=== PATIENT | female | born 1985 | race African-American/Black ===

== ENCOUNTER 2022-01-29 06:52 | Emergency (ER) | payer OTHER ==
[2022-01-29] MEDS ORDERED: Bacitracin 1 PK ONE (07:48)
[2022-01-29] MEDS ORDERED: Boostrix 0.5 ML (Tdap) VIAL ONE (07:49)
[2022-01-29] MEDS ORDERED: Amoxicillin/Potassium Clav 875 MG TAB ONE (07:49)
[2022-01-29] MEDS ORDERED: Lidocaine 1% w/Epinephrine 1:100K 20 ML VIAL ONE (07:49)
[2022-01-29] MEDS ORDERED: Rabies Vaccine Human 2.5 UNITS VIAL ONE (07:49)
[2022-01-29] MEDS ORDERED: Ketorolac Tromethamine 30 MG/ML VIAL ONE (08:22)
[2022-01-29] MEDS ORDERED: Acetaminophen 500 MG TAB ONE (09:04)
[2022-01-29] MEDS ORDERED: Ampicillin/Sulbactam 3 GM in Sodium Chloride 0.9% 100 ML IVPB SCH (09:45)
== END 2022-01-29 10:16 | disposition left against medical advice (07) ==
LOC: CSHERS 06:52
DX: S91.351A Open bite, right foot, initial encounter (principal); W54.0XXA Bitten by dog, initial encounter
CPT/HCPCS: 90375; 90471; 90472; 90675; 90715; 96372; 96374; J0295; J1885; J3490

== ENCOUNTER 2022-11-08 18:06 | Emergency (ER) | payer OTHER ==
[2022-11-08] MEDS ORDERED: HYDROcodone/Acetaminophen 5/325 mg Tablet ONE (19:18)
== END 2022-11-08 19:25 | disposition home or self-care (01) ==
LOC: CSHERS 18:06
DX: S93.601A Unspecified sprain of right foot, initial encounter (principal); W22.8XXA Striking against or struck by other objects, initial encounter

== ENCOUNTER 2023-02-22 00:59 | Emergency (ER) | payer OTHER, SELFPAY ==
[2023-02-22] MEDS ORDERED: Ibuprofen 200 MG TAB ONE (01:54)
== END 2023-02-22 01:53 | disposition home or self-care (01) ==
LOC: CSHERS 00:59
DX: S90.935A Unspecified superficial injury of left lesser toe(s), initial encounter (principal); F17.210 Nicotine dependence, cigarettes, uncomplicated; W22.8XXA Striking against or struck by other objects, initial encounter

== ENCOUNTER 2023-02-26 00:33 | Emergency (ER) | payer SELFPAY ==
[2023-02-26] MEDS ORDERED: Ondansetron PF 4 MG/2 ML Vial ONE ×2 (00:54→02:12)
[2023-02-26] MEDS ORDERED: Ketorolac Tromethamine 30 MG/ML VIAL ONE (00:55)
[2023-02-26 01:05] LABS: #Eosinphils 0.1 10x3/uL (0.0-0.5); #Monocytes 0.4 10x3/uL (0.0-1.1); %Basophils 0.9 % (0.0-2.0); %Lymphocytes 54.6 % (18.0-47.0); %Monocytes 12.6 % (0.0-10.0); %Neutrophils 29.6 % (40.0-75.0); Hematocrit 36.4 % (34.9-44.5); Mean Corpuscular Hemoglobin 29.3 pg (27.0-33.0); Mean Platelet Volume 8.6 fl (7.4-10.4); Platelet Count 332 10x3/uL (150-450); RBC Distribution Width 14.6 % (11.5-14.5); Red Blood Cell (RBC) Count 4.09 10x6/uL (3.90-5.03); White Blood Cell (WBC) Count 3.5 10x3/uL (3.5-10.5)
[2023-02-26 01:17] LABS: ALT (SGPT) 25 U/L (8-55); AST (SGOT) 41 U/L (5-34); Albumin 4.1 g/dL (3.5-5.0); Alkaline Phosphatase 144 U/L (40-110); Anion Gap 18 mmol/L (10-20); BUN (Urea Nitrogen) 14 mg/dL (7.0-18.7); Bilirubin, Total Less than 0.2 mg/dL (0.2-1.2); CK (CPK) 549 U/L (29-168); Calc. Creatinine Clearance 0 mL/min (70-130); Calcium 8.5 mg/dL (7.8-10.44); Carbon Dioxide 18 mmol/L (22-29); Chloride 109 mmol/L (98-107); Estimated GFR 81; Globulin 3.1 g/dL (2.4-3.5); Glucose 129 mg/dL (70-105); Magnesium 1.7 mg/dL (1.6-2.6); Potassium 3.6 mmol/L (3.5-5.1); Protein, Total 7.2 g/dL (6.0-8.3); Sodium 141 mmol/L (136-145)
== END 2023-02-26 02:12 | disposition home or self-care (01) ==
LOC: CSHERS 00:33
DX: E86.0 Dehydration (principal); R11.0 Nausea; R51.9 Headache, unspecified; F17.210 Nicotine dependence, cigarettes, uncomplicated
CPT/HCPCS: 80053; 82550; 83735; 85025; 96374; 96375; 96376; J1885; J2405

== ENCOUNTER 2023-03-09 19:15 | Emergency (ER) | payer OTHER, SELFPAY | END 2023-03-09 21:10 | disposition home or self-care (01) | LOC: CSHERS 19:15 | DX: S62.315A Displaced fracture of base of fourth metacarpal bone, left hand, initial encounter for closed fracture (principal); F17.210 Nicotine dependence, cigarettes, uncomplicated; Y04.0XXA Assault by unarmed brawl or fight, initial encounter | CPT/HCPCS: 29125 ==

== ENCOUNTER 2023-03-22 19:02 | Emergency (ER) | payer OTHER ==
[2023-03-22] MEDS ORDERED: Lidocaine/Transparent Dressing 1 EACH KIT ONE (19:48)
== END 2023-03-22 20:30 | disposition home or self-care (01) ==
LOC: CSHERS 19:02
DX: K04.7 Periapical abscess without sinus (principal); F17.210 Nicotine dependence, cigarettes, uncomplicated
CPT/HCPCS: 99283

== ENCOUNTER 2023-05-23 13:55 | Emergency (ER) | payer OTHER ==
[~2023-05-23 13:55] MED LIST: Iopamidol 300 61% 100 ML VIAL FS ONE
[2023-05-23 14:25] LABS: Bilirubin Neg (Negative); Blood, Urine 10 (Negative); Clarity Clear (Clear); Glucose, Urine (Dipstick) Normal (Negative); Ketone, Urine Negative (Negative); Leukocyte Negative (Negative); Nitrite Negative (Negative); Protein, Urine (Dipstick) Negative (Neg-Trace)
[2023-05-23 14:42] LABS: Bacteria/HPF None Seen HPF (None Seen); CAUTI Indications for Culture Pelvic or flank pain; RBC/HPF 0-3 HPF (0-3); Squamous Epithelial 0-3 HPF (0-3); Urine Culture Reflex No No; WBC/HPF None Seen HPF (0-3)
[2023-05-23 15:04] LABS: Pregnancy Test - Urine (BHCG) Negative (Negative); Pregu Control Background? CLEAR/WHITE (CLR/WHITE); Pregu Control Bar Appear? YES (CONTROL BAR)
[2023-05-23 15:37] LABS: #Eosinphils 0.1 10x3/uL (0.0-0.5); #Monocytes 0.4 10x3/uL (0.0-1.1); #Neutrophils 2.2 10x3/uL (1.5-8.4); %Basophils 0.5 % (0.0-2.0); %Eosinophils 2.3 % (0.0-6.0); %Lymphocytes 28.6 % (18.0-47.0); %Monocytes 9.9 % (0.0-10.0); %Neutrophils 58.4 % (40.0-75.0); Hematocrit 38.3 % (34.9-44.5); Hemoglobin 12.4 g/dL (12.0-15.5); Mean Corpuscular HGB CONC 32.4 g/dL (32.0-36.0); Mean Corpuscular Hemoglobin 28.8 pg (27.0-33.0); Mean Corpuscular Volume 88.9 fl (81.6-98.3); Mean Platelet Volume 8.9 fl (7.4-10.4); Platelet Count 343 10x3/uL (150-450); RBC Distribution Width 13.4 % (11.5-14.5); Red Blood Cell (RBC) Count 4.31 10x6/uL (3.90-5.03); White Blood Cell (WBC) Count 3.8 10x3/uL (3.5-10.5)
[2023-05-23 15:54] LABS: ALT (SGPT) 53 U/L (8-55); AST (SGOT) 59 U/L (5-34); Albumin 4.2 g/dL (3.5-5.0); Alkaline Phosphatase 126 U/L (40-110); Anion Gap 12 mmol/L (10-20); BUN (Urea Nitrogen) 8 mg/dL (7.0-18.7); Bilirubin, Total 0.3 mg/dL (0.2-1.2); Calc. Creatinine Clearance 0 mL/min (70-130); Calcium 9.4 mg/dL (7.8-10.44); Carbon Dioxide 23 mmol/L (22-29); Chloride 109 mmol/L (98-107); Estimated GFR 89; Globulin 3.6 g/dL (2.4-3.5); Glucose 89 mg/dL (70-105); Lipase 181 U/L (8-78); Potassium 4.2 mmol/L (3.5-5.1); Protein, Total 7.8 g/dL (6.0-8.3); Sodium 140 mmol/L (136-145)
[2023-05-23] MEDS ORDERED: Dicyclomine 20 MG TAB ONE (17:00)
== END 2023-05-23 18:26 | disposition home or self-care (01) ==
LOC: CSHERS 13:55
DX: R10.30 Lower abdominal pain, unspecified (principal); F17.210 Nicotine dependence, cigarettes, uncomplicated
CPT/HCPCS: 74177; 76856; 80053; 81001; 81025; 83690; 85025; Q9967

== ENCOUNTER 2023-08-15 18:28 | Emergency (ER) | payer SELFPAY ==
[2023-08-15] MEDS ORDERED: Ondansetron ODT 4 MG TAB ONE (19:19)
[2023-08-15 19:44] LABS: SARS-CoV-2 NAA Rapid Test Not Detected (NotDetected)
[2023-08-15 19:55] LABS: Pregnancy Test - Urine (BHCG) Negative (Negative); Pregu Control Background? CLEAR/WHITE (CLR/WHITE); Pregu Control Bar Appear? YES (CONTROL BAR); Specific Gravity 1.025 (1.002-1.036)
== END 2023-08-15 20:10 | disposition home or self-care (01) ==
LOC: CSHERS 18:28
DX: K52.9 Noninfective gastroenteritis and colitis, unspecified (principal); F17.210 Nicotine dependence, cigarettes, uncomplicated
CPT/HCPCS: 81025; 99283; Q0162

== ENCOUNTER 2023-08-27 20:49 | Emergency (ER) | payer OTHER ==
[2023-08-27] MEDS ORDERED: Ketorolac Tromethamine 30 MG (1 mL) VIAL ONE (21:52)
[2023-08-27] MEDS ORDERED: Acetaminophen 500 MG TAB ONE (21:53)
[2023-08-27 21:59] LABS: #Monocytes 0.7 10x3/uL (0.0-1.1); %Basophils 0.5 % (0.0-2.0); %Eosinophils 0.2 % (0.0-6.0); %Lymphocytes 14.6 % (18.0-47.0); %Monocytes 11.9 % (0.0-10.0); %Neutrophils 72.6 % (40.0-75.0); Hemoglobin 12.2 g/dL (12.0-15.5); Mean Corpuscular HGB CONC 32.1 g/dL (32.0-36.0); Mean Corpuscular Hemoglobin 26.3 pg (27.0-33.0); Mean Corpuscular Volume 82.1 fl (81.6-98.3); Mean Platelet Volume 8.8 fl (7.4-10.4); Platelet Count 356 10x3/uL (150-450); RBC Distribution Width 15.4 % (11.5-14.5); Red Blood Cell (RBC) Count 4.63 10x6/uL (3.90-5.03); White Blood Cell (WBC) Count 5.6 10x3/uL (3.5-10.5)
[2023-08-27 22:07] LABS: BHCG - Serum Negative (NEGATIVE); Pregs Control Background? CLEAR/WHITE (CLR/WHITE); Pregs Control Bar Appear? YES (CONTROL BAR)
[2023-08-27 22:10] LABS: ALT (SGPT) 17 U/L (8-55); AST (SGOT) 29 U/L (5-34); Alkaline Phosphatase 130 U/L (40-110); Anion Gap 16 mmol/L (10-20); BUN (Urea Nitrogen) 5 mg/dL (7.0-18.7); Bilirubin, Total 0.3 mg/dL (0.2-1.2); Calc. Creatinine Clearance 0 mL/min (70-130); Calcium 8.8 mg/dL (7.8-10.44); Carbon Dioxide 21 mmol/L (22-29); Chloride 103 mmol/L (98-107); Estimated GFR 69; Globulin 3.7 g/dL (2.4-3.5); Glucose 85 mg/dL (70-105); Potassium 4.2 mmol/L (3.5-5.1); Protein, Total 7.7 g/dL (6.0-8.3); Sodium 136 mmol/L (136-145)
[2023-08-27 22:16] LABS: Troponin I Less than 0.010 ng/mL (< 0.028)
[2023-08-27 22:45] LABS: SARS-CoV-2 NAA Rapid Test Not Detected (NotDetected)
[2023-08-27 23:24] LABS: Bilirubin Neg (Negative); Blood, Urine 10 (Negative); Clarity Clear (Clear); Glucose, Urine (Dipstick) Normal (Negative); Ketone, Urine Negative (Negative); Leukocyte Negative (Negative); Nitrite Negative (Negative); Protein, Urine (Dipstick) Negative (Neg-Trace); Urobilinogen Normal mg/dL (Less than 2); pH, Urine 6.5 (5.0-9.0)
[2023-08-27 23:37] LABS: Bacteria/HPF None Seen HPF (None Seen); CAUTI Indications for Culture Fever or rigors; Mucous/LPF 1+ LPF (<2+); RBC/HPF None Seen HPF (0-3); Squamous Epithelial 0-3 HPF (0-3); Urine Culture Reflex No No; WBC/HPF None Seen HPF (0-3)
== END 2023-08-27 23:41 | disposition home or self-care (01) ==
LOC: CSHERS 20:49
DX: J10.1 Influenza due to other identified influenza virus with other respiratory manifestations (principal); F17.210 Nicotine dependence, cigarettes, uncomplicated
CPT/HCPCS: 36415; 71045; 80053; 81001; 83605; 83880; 84484; 84703; 85025; 85379; 87040; 93005; 96374; J1885

== ENCOUNTER 2024-06-24 04:00 | Emergency (ER) | payer OTHER | END 2024-06-24 06:15 | disposition home or self-care (01) | LOC: CSHERS 04:00 | DX: J98.8 Other specified respiratory disorders (principal); K64.4 Residual hemorrhoidal skin tags; F17.210 Nicotine dependence, cigarettes, uncomplicated | CPT/HCPCS: 99283 ==